=== PATIENT | male | born 1985 | race Caucasian/White ===

== ENCOUNTER 2021-01-31 10:00 | Inpatient (IN) | payer SELFPAY ==
[2021-01-31 10:09] VITALS: BP 148/92; PULSE 104; RESP 18; TEMP 37.1; O2SAT 97; BMI 22.9
--- NOTE | 2021-01-31 10:23 | W.ED.PSYCH ---
Documented by User: MAHNAZ Cha 02/01/21 08:57 HPI - Psych General: Chief Complaint: Psychiatric Symptoms Stated Complaint: SI Time Seen by Provider: 01/31/21 10:06 History of Present Illness: HPI Narrative: Patient is a 35-year-old male comes to the ED with depression and SI. Past medical history of major depressive disorder and he currently takes Klonopin, Prozac and hydroxyzine. Patient also admits to methamphetamine use and says that he smoked meth approximately 36 hours ago. Currently he is having a lot of stress and issues with his . He is having increased depression lately due to his relationship problems. Patient also described that he is paranoid and thinks that the neuropsychology division chief are trying to kill him. He denies any auditory or visual hallucinations. Associated symptoms: Reports delusions, depression, homicidal ideation and suicidal ideation; Deny auditory hallucinations or visual hallucinations Review of Systems Const: Denies: fever(s), chills or fatigue Eyes: Denies: change in vision or eye discomfort ENMT: Denies: throat pain, odynophagia, nasal discharge or nasal congestion Card: Denies: chest pain, palpitations, edema, swelling of feet/ankles, dyspnea on exertion or orthopnea Resp: Denies: dyspnea, productive cough or non-productive cough GI: Denies: abdominal pain, nausea, vomiting, diarrhea, constipation or hematochezia : Denies: flank pain, difficulty urinating, dysuria or hematuria Musc: Denies: neck pain, back pain or extremity swelling Skin/Breast: Denies: rash or new lesions Neuro: Denies: headache(s), numbness in extremities or weakness in extremities Psych: Reports: depression, paranoia, suicidal ideation and homicidal ideation; Denies: visual hallucinations or auditory hallucinations Physical Exam Const: COMMON NORMALS: patient oriented x3 and alert GENERAL APPEARANCE: cooperative and comfortable HENMT: COMMON NORMALS: normocephalic HEAD & SCALP: normocephalic MOUTH: Normal oral and palatal mucosa present THROAT: posterior oropharynx normal and uvula midline Neck/C-Spine: COMMON NORMALS: supple GENERAL: Yes normal visual inspection Resp: COMMON NORMALS: normal respiratory effort, No retractions, No use of accessory muscles and clear to auscultation bilaterally AUSCULTATION: clear to auscultation bilaterally Cardio: COMMON NORMALS: regular rate, regular rhythm, S1 normal heart sound present, S2 normal heart sound present, No gallops present (Cardio), No clicks present (Cardio), No murmurs present (Cardio) and Peripheral pulses 2+ throughout RATE: regular rate RHYTHM: regular rhythm HEART SOUNDS: S1 normal heart sound present and S2 normal heart sound present PERIPHERAL PULSES: Peripheral pulses 2+ throughout GI: COMMON NORMALS: Normal to inspection, nondistended, normoactive bowel sounds present, Soft to palpation, non-tender and no masses PALPATION: Yes Soft to palpation : COMMON NORMALS: Yes no CVA tenderness BLADDER/KIDNEY EXAM: Yes no CVA tenderness Back/Pelvis: COMMON NORMALS: no CVA tenderness Extremity: COMMON NORMALS: normal to inspection Neuro: COMMON NORMALS: patient oriented x3 and moves all extremities SENSORIUM/ORIENTATION: Yes alert Psych: APPEARANCE: Yes grossly normal ATTITUDE: Yes engaged ACTIVITY/MOTOR BEHAVIOR: Yes appropriate eye contact, Yes fidgeting and Yes hyperactivity SPEECH: Yes rapid MOOD & AFFECT: Yes elevated mood, Yes anxious and Yes tearful THOUGHT CONTENT: Yes Suicidality present, Yes delusions Delusional thought content details: paranoid (He thinks the neuropsychology division chief are trying to kill him.) and No Hallucination(s) present ATTENTION/CONCENTRATION: Yes attention grossly intact and Yes concentration grossly intact MEMORY/COGNITION: Yes memory grossly intact and Yes cognition grossly intact INSIGHT: Fair insight present (Psych) JUDGEMENT: Fair judgement present (Psych) Skin: GENERAL SKIN EXAM: dry skin Course Consultations: Consultation #1: I contacted Dr. Torres and told about patient case. He wanted me to put patient on a 96-hour hold and admit him to the stress unit. Vital Signs: Vital signs: Vital Signs Temperature 98.8 F 02/03/21 09:35 Pulse Rate 64 02/03/21 09:35 Respiratory Rate 15 02/03/21 09:35 Blood Pressure 110/65 02/03/21 09:35 Pulse Oximetry 99 02/03/21 09:35 MDM - Psych MDM Narrative: Medical decision making narrative: Patient is a 35-year-old male comes to the ED with SI and depression. Patient admits to being a methamphetamine user and used meth approximately 36 hours ago. All prescreening labs were performed and patient did have a positive meth and marijuana urine drug screen. I contacted Dr. Torres to tell him about patient case. He wanted me to put patient on a 96-hour hold and admit him to the stress unit. I filled out the 96-hour hold paperwork and head Dr. Maldonado placed the admitting orders for patient to go to the NPU. Lab Data: Attestation: I reviewed the patient's lab results. Labs: Lab Results 01/31/21 01/31/21 01/31/21 Range/Units 10:24 10:24 12:26 WBC 10.0 (4.0-10.0) 10^3/ uL RBC 4.93 (4.1-5.3) 10^6/u L Hgb 14.7 (11.7-16.6) g/dL Hct 43.5 (42.0-52.0) % MCV 88.2 (80-94) fL MCH 29.8 (28.0-34.0) pg MCHC 33.8 (30.0-36.0) g/dL RDW 13.1 (12.1-15.1) % Plt Count 320 (130-400) 10^3/c mm MPV 11.0 H (7.4-10.4) fL Neut % (Auto) 67.7 % Lymph % (Auto) 21.0 % [place] % (Auto) 9.6 % Eos % (Auto) 0.6 % Baso % (Auto) 0.8 % Neut # (Auto) 6.80 (1.8-7.7) 10^3/u L Lymph # (Auto) 2.1 (0.8-4.8) 10^3/u L [place] # (Auto) 1.0 H (0.2-0.9) 10^3/u L Eos # (Auto) 0.1 (0.0-0.8) 10^3/u L Baso # (Auto) 0.1 (0.0-0.1) 10^3/u L Nucleated RBC % (a uto) 0 % Nucleated RBCs # 0.0 /100WBC Sodium 143 (136-145) mmol/L Potassium 3.9 (3.5-5.1) mmol/L Chloride 103 (98-107) mmol/L Carbon Dioxide 24 (22-29) mmol/L Anion Gap 19.9 H (5-19) BUN 14 (6-20) mg/dL Creatinine 0.8 (0.7-1.2) mg/dL GFR Calculation 110.7 (90-130) mL/min Glucose 85 (65-115) mg/dL Calculated Osmolal ity 296 H (285-295) mOsm/k g Calcium 10.1 (8.5-10.5) mg/dL Total Bilirubin 0.6 (0.15-1.2) mg/dL AST 32 (0-40) U/L ALT 30 (0-41) U/L Alkaline Phosphata se 110 (40-130) IU/L Total Protein 7.3 (6.6-8.7) g/dL Albumin 4.9 (3.5-5.2) g/dL Globulin 2.4 (1.3-4.6) g/dL Urine Color Yellow (Yellow) Urine Appearance Clear (CLEAR) Urine pH 5 (5-7) Ur Specific Gravit y 1.020 (1.005-1.030) Urine Protein Neg (Negative) Urine Glucose (UA) Norm (Normal) Urine Ketones Negative (Negative) Urine Blood Neg (Negative) Urine Nitrate Negative (Negative) Urine Bilirubin Neg (Negative) Urine Urobilinogen Norm (Negative) mg/dL Ur Leukocyte Ashley ase Negative (Negative) Urine RBC None (0-2) /hpf Urine WBC 0-4 H (0-5) /hpf Ur Squamous Epith Cells 0-4 H (0-5) /hpf Amorphous Sediment Not Reportable Urine Bacteria Trace (NONE) /hpf Salicylates < 0.3 L (3-10) mg/dL Urine Opiates Scre en (Negative) ng/mL Acetaminophen < 5.0 L (10-30) ug/mL Ur Barbiturates Sc reen (Negative) ng/mL Ur Phencyclidine S crn (Negative) ng/mL Ur Amphetamines Sc reen (Negative) ng/mL U Benzodiazepines Scrn (Negative) ng/mL Urine Cocaine Scre en (Negative) ng/mL U Marijuana (THC) Screen (Negative) ng/mL Ethyl Alcohol 28 H (0-10) mg/dL 01/31/21 Range/Units 12:26 WBC (4.0-10.0) 10^3/ uL RBC (4.1-5.3) 10^6/u L Hgb (11.7-16.6) g/dL Hct (42.0-52.0) % MCV (80-94) fL MCH (28.0-34.0) pg MCHC (30.0-36.0) g/dL RDW (12.1-15.1) % Plt Count (130-400) 10^3/c mm MPV (7.4-10.4) fL Neut % (Auto) % Lymph % (Auto) % [place] % (Auto) % Eos % (Auto) % Baso % (Auto) % Neut # (Auto) (1.8-7.7) 10^3/u L Lymph # (Auto) (0.8-4.8) 10^3/u L [place] # (Auto) (0.2-0.9) 10^3/u L Eos # (Auto) (0.0-0.8) 10^3/u L Baso # (Auto) (0.0-0.1) 10^3/u L Nucleated RBC % (a uto) % Nucleated RBCs # /100WBC Sodium (136-145) mmol/L Potassium (3.5-5.1) mmol/L Chloride (98-107) mmol/L Carbon Dioxide (22-29) mmol/L Anion Gap (5-19) BUN (6-20) mg/dL Creatinine (0.7-1.2) mg/dL GFR Calculation (90-130) mL/min Glucose (65-115) mg/dL Calculated Osmolal ity (285-295) mOsm/k g Calcium (8.5-10.5) mg/dL Total Bilirubin (0.15-1.2) mg/dL AST (0-40) U/L ALT (0-41) U/L Alkaline Phosphata se (40-130) IU/L Total Protein (6.6-8.7) g/dL Albumin (3.5-5.2) g/dL Globulin (1.3-4.6) g/dL Urine Color (Yellow) Urine Appearance (CLEAR) Urine pH (5-7) Ur Specific Gravit y (1.005-1.030) Urine Protein (Negative) Urine Glucose (UA) (Normal) Urine Ketones (Negative) Urine Blood (Negative) Urine Nitrate (Negative) Urine Bilirubin (Negative) Urine Urobilinogen (Negative) mg/dL Ur Leukocyte Ashley ase (Negative) Urine RBC (0-2) /hpf Urine WBC (0-5) /hpf Ur Squamous Epith Cells (0-5) /hpf Amorphous Sediment Urine Bacteria (NONE) /hpf Salicylates (3-10) mg/dL Urine Opiates Scre en Negative (Negative) ng/mL Acetaminophen (10-30) ug/mL Ur Barbiturates Sc reen Negative (Negative) ng/mL Ur Phencyclidine S crn Negative (Negative) ng/mL Ur Amphetamines Sc reen Positive H (Negative) ng/mL U Benzodiazepines Scrn Negative (Negative) ng/mL Urine Cocaine Scre en Negative (Negative) ng/mL U Marijuana (THC) Screen Positive H (Negative) ng/mL Ethyl Alcohol (0-10) mg/dL Discharge Plan Discharge Patient Disposition: Admitted As Inpatient Admit Provider: Yonis Torres Condition: Stable Discharge Diet: Regular Discharge Activity: Resume usual activity Coding Level of Care Code ED 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 Department for [employer] Fwd Exam Comprehensive Documented by User: Morgan Briceño MD 02/04/21 11:04 HPI - Psych General: Chief Complaint: Psychiatric Symptoms Stated Complaint: SI Time Seen by Provider: 01/31/21 10:06 Course Vital Signs: Vital signs: Vital Signs Temperature 98.8 F 02/03/21 09:35 Pulse Rate 64 02/03/21 09:35 Respiratory Rate 15 02/03/21 09:35 Blood Pressure 110/65 02/03/21 09:35 Pulse Oximetry 99 02/03/21 09:35 MDM - Psych Lab Data: Labs: Lab Results 01/31/21 01/31/21 01/31/21 Range/Units 10:24 10:24 12:26 WBC 10.0 (4.0-10.0) 10^3/ uL RBC 4.93 (4.1-5.3) 10^6/u L Hgb 14.7 (11.7-16.6) g/dL Hct 43.5 (42.0-52.0) % MCV 88.2 (80-94) fL MCH 29.8 (28.0-34.0) pg MCHC 33.8 (30.0-36.0) g/dL RDW 13.1 (12.1-15.1) % Plt Count 320 (130-400) 10^3/c mm MPV 11.0 H (7.4-10.4) fL Neut % (Auto) 67.7 % Lymph % (Auto) 21.0 % [place] % (Auto) 9.6 % Eos % (Auto) 0.6 % Baso % (Auto) 0.8 % Neut # (Auto) 6.80 (1.8-7.7) 10^3/u L Lymph # (Auto) 2.1 (0.8-4.8) 10^3/u L [place] # (Auto) 1.0 H (0.2-0.9) 10^3/u L Eos # (Auto) 0.1 (0.0-0.8) 10^3/u L Baso # (Auto) 0.1 (0.0-0.1) 10^3/u L Nucleated RBC % (a uto) 0 % Nucleated RBCs # 0.0 /100WBC Sodium 143 (136-145) mmol/L Potassium 3.9 (3.5-5.1) mmol/L Chloride 103 (98-107) mmol/L Carbon Dioxide 24 (22-29) mmol/L Anion Gap 19.9 H (5-19) BUN 14 (6-20) mg/dL Creatinine 0.8 (0.7-1.2) mg/dL GFR Calculation 110.7 (90-130) mL/min Glucose 85 (65-115) mg/dL Calculated Osmolal ity 296 H (285-295) mOsm/k g Calcium 10.1 (8.5-10.5) mg/dL Total Bilirubin 0.6 (0.15-1.2) mg/dL AST 32 (0-40) U/L ALT 30 (0-41) U/L Alkaline Phosphata se 110 (40-130) IU/L Total Protein 7.3 (6.6-8.7) g/dL Albumin 4.9 (3.5-5.2) g/dL Globulin 2.4 (1.3-4.6) g/dL Urine Color Yellow (Yellow) Urine Appearance Clear (CLEAR) Urine pH 5 (5-7) Ur Specific Gravit y 1.020 (1.005-1.030) Urine Protein Neg (Negative) Urine Glucose (UA) Norm (Normal) Urine Ketones Negative (Negative) Urine Blood Neg (Negative) Urine Nitrate Negative (Negative) Urine Bilirubin Neg (Negative) Urine Urobilinogen Norm (Negative) mg/dL Ur Leukocyte Ashley ase Negative (Negative) Urine RBC None (0-2) /hpf Urine WBC 0-4 H (0-5) /hpf Ur Squamous Epith Cells 0-4 H (0-5) /hpf Amorphous Sediment Not Reportable Urine Bacteria Trace (NONE) /hpf Salicylates < 0.3 L (3-10) mg/dL Urine Opiates Scre en (Negative) ng/mL Acetaminophen < 5.0 L (10-30) ug/mL Ur Barbiturates Sc reen (Negative) ng/mL Ur Phencyclidine S crn (Negative) ng/mL Ur Amphetamines Sc reen (Negative) ng/mL U Benzodiazepines Scrn (Negative) ng/mL Urine Cocaine Scre en (Negative) ng/mL U Marijuana (THC) Screen (Negative) ng/mL Ethyl Alcohol 28 H (0-10) mg/dL 01/31/21 Range/Units 12:26 WBC (4.0-10.0) 10^3/ uL RBC (4.1-5.3) 10^6/u L Hgb (11.7-16.6) g/dL Hct (42.0-52.0) % MCV (80-94) fL MCH (28.0-34.0) pg MCHC (30.0-36.0) g/dL RDW (12.1-15.1) % Plt Count (130-400) 10^3/c mm MPV (7.4-10.4) fL Neut % (Auto) % Lymph % (Auto) % [place] % (Auto) % Eos % (Auto) % Baso % (Auto) % Neut # (Auto) (1.8-7.7) 10^3/u L Lymph # (Auto) (0.8-4.8) 10^3/u L [place] # (Auto) (0.2-0.9) 10^3/u L Eos # (Auto) (0.0-0.8) 10^3/u L Baso # (Auto) (0.0-0.1) 10^3/u L Nucleated RBC % (a uto) % Nucleated RBCs # /100WBC Sodium (136-145) mmol/L Potassium (3.5-5.1) mmol/L Chloride (98-107) mmol/L Carbon Dioxide (22-29) mmol/L Anion Gap (5-19) BUN (6-20) mg/dL Creatinine (0.7-1.2) mg/dL GFR Calculation (90-130) mL/min Glucose (65-115) mg/dL Calculated Osmolal ity (285-295) mOsm/k g Calcium (8.5-10.5) mg/dL Total Bilirubin (0.15-1.2) mg/dL AST (0-40) U/L ALT (0-41) U/L Alkaline Phosphata se (40-130) IU/L Total Protein (6.6-8.7) g/dL Albumin (3.5-5.2) g/dL Globulin (1.3-4.6) g/dL Urine Color (Yellow) Urine Appearance (CLEAR) Urine pH (5-7) Ur Specific Gravit y (1.005-1.030) Urine Protein (Negative) Urine Glucose (UA) (Normal) Urine Ketones (Negative) Urine Blood (Negative) Urine Nitrate (Negative) Urine Bilirubin (Negative) Urine Urobilinogen (Negative) mg/dL Ur Leukocyte Ashley ase (Negative) Urine RBC (0-2) /hpf Urine WBC (0-5) /hpf Ur Squamous Epith Cells (0-5) /hpf Amorphous Sediment Urine Bacteria (NONE) /hpf Salicylates (3-10) mg/dL Urine Opiates Scre en Negative (Negative) ng/mL Acetaminophen (10-30) ug/mL Ur Barbiturates Sc reen Negative (Negative) ng/mL Ur Phencyclidine S crn Negative (Negative) ng/mL Ur Amphetamines Sc reen Positive H (Negative) ng/mL U Benzodiazepines Scrn Negative (Negative) ng/mL Urine Cocaine Scre en Negative (Negative) ng/mL U Marijuana (THC) Screen Positive H (Negative) ng/mL Ethyl Alcohol (0-10) mg/dL Discharge Plan Discharge Patient Disposition: Admitted As Inpatient Admit Provider: Yonis Torres Condition: Stable Discharge Diet: Regular Discharge Activity: Resume usual activity Coding Level of Care Code ED 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
[2021-01-31 10:25] VITALS: BP 142/84; PULSE 98; RESP 18; O2SAT 96
[2021-01-31 10:34] LABS: Basophils # 0.1 10^3/uL (0.0-0.1); Basophils % 0.8 %; Eosinophils # 0.1 10^3/uL (0.0-0.8); Eosinophils % 0.6 %; Hematocrit 43.5 % (42.0-52.0); Hemoglobin 14.7 g/dL (11.7-16.6); Lymphocytes # 2.1 10^3/uL (0.8-4.8); Mean Corpuscular HGB Conc 33.8 g/dL (30.0-36.0); Mean Corpuscular Hemoglobin 29.8 pg (28.0-34.0); Mean Corpuscular Volume 88.2 fL (80-94); Monocytes % 9.6 %; Neutrophils % 67.7 %; Nucleated Red Blood Cells % 0 %; Platelet Count 320 10^3/cmm (130-400); Red Blood Count 4.93 10^6/uL (4.1-5.3); Red Cell Distribution Width 13.1 % (12.1-15.1)
[2021-01-31 10:56] LABS: Alanine Aminotransferase 30 U/L (0-41); Albumin Level 4.9 g/dL (3.5-5.2); Alcohol Level 28 mg/dL (0-10); Alkaline Phosphatase 110 IU/L (40-130); Anion Gap 19.9 (5-19); Aspartate Amino Transferase 32 U/L (0-40); Blood Urea Nitrogen 14 mg/dL (6-20); Calcium 10.1 mg/dL (8.5-10.5); Carbon Dioxide 24 mmol/L (22-29); Chloride 103 mmol/L (98-107); Globulin 2.4 g/dL (1.3-4.6); Glomerular Filtration Rate 110.7 mL/min (90-130); Glucose 85 mg/dL (65-115); Osmolality Calculated 296 mOsm/kg (285-295); Potassium 3.9 mmol/L (3.5-5.1); Sodium 143 mmol/L (136-145); Total Bilirubin 0.6 mg/dL (0.15-1.2); Total Protein 7.3 g/dL (6.6-8.7)
[2021-01-31 10:57] LABS: Acetaminophen < 5.0 ug/mL (10-30); Salicylate < 0.3 mg/dL (3-10)
[2021-01-31] MEDS: LORazepam 2 mg Tablet PO (11:26)
[2021-01-31 13:16] VITALS: BP 119/72; PULSE 73; RESP 20; O2SAT 97
[2021-01-31 13:43] LABS: Amphetamines Screen Urine Positive (Negative); Barbiturates Screen Urine Negative (Negative); Benzodiazepines Screen Urine Negative (Negative); Cocaine Screen Urine Negative (Negative); Opiate Screen Urine Negative (Negative); PCP Screen Urine Negative (Negative); THC Screen Urine Positive (Negative)
[2021-01-31 13:49] LABS: Bacteria Urine TRACE /hpf; Bilirubin Urine Neg (Negative); Blood Urine Neg (Negative); Glucose Urine UA Norm (Normal); Ketones Urine Negative (Negative); Leukocyte Esterase Urine Negative (Negative); Nitrate Urine Negative (Negative); Protein Urine Neg (Negative); Squamous Epithelial Cell Urine 0-4 /hpf (0-5); Urine Appearance Clear (CLEAR); Urine Color Yellow (Yellow); Urobilinogen Urine Norm (Negative); WBC Urine 0-4 /hpf (0-5); pH Urine 5 (5-7)
[2021-01-31 13:50] LABS: Add Urine Culture? No
[2021-01-31 15:01] VITALS: BP 117/74; PULSE 80; RESP 17; TEMP 36.6; O2SAT 97
[2021-01-31 20:11] VITALS: BP 103/70; PULSE 69; RESP 23; TEMP 36.6; O2SAT 98
[2021-01-31] MEDS: hyDROXYzine 25 mg Capsule 50 MG PO (20:34)
[2021-01-31] MEDS: trazodone 50 mg Tablet PO (20:35)
[2021-02-01 06:00] VITALS: BP 97/63; PULSE 56; RESP 19; TEMP 36.8; O2SAT 97
[2021-02-01] MEDS: fluoxetine 20 mg Capsule PO (07:59)
[2021-02-01] MEDS: gabapentin 300 mg Capsule PO ×3 (07:59→20:43)
--- NOTE | 2021-02-01 08:02 | PC.NURSE ---
AM note Patient resting in bed during assessment, did not acknowledge nurse at first. Patient reluctantly roll over stating Whats, up? RN asked to do physical assessment. Patient told this nurse to hurry. After assessment patient rolled back over and went to sleep. Patient did not get up for breakfast.
--- NOTE | 2021-02-01 11:07 | PM.NHP ---
Providers/Chief Complaint Admitting Physician: Yonis Torres DO Chief Complaint: SI HPI NPU History of Present Illness Reid Ríos is a 35 year old male with longstanding polysubstance abuse history as well as daily alcohol use presenting to the emergency department stating that he is suicidal and going to kill himself with ongoing depressive symptoms as well as PTSD symptoms from trauma experienced while he was in [facility]. Patient currently stating that all he needs is his medications to be refilled because he does not see a psychiatrist on an outpatient basis and last had his medications filled for 90 days from a previous psychiatric hospitalization. Patient states that he was really not suicidal and was trying to manipulate to get into the inpatient psychiatry unit but subsequently reports having daily PTSD symptoms to cause significant impairment to include reexperiencing, flashbacks, night sweats, hypervigilance, nightmares. Patient states that he thinks he has bipolar disorder although he is not able to cite any instances of not using substances or alcohol and experiencing any hypomanic or manic episodes outside of his behaviors related to methamphetamine use Patient also reports significant anxiety and states that he had been taking Klonopin and was able to secure Klonopin during his last hospitalization and had it increased to clonazepam 2 mg 3 times daily which she states he had been taking on an as-needed basis for his anxiety that he describes as trauma related anxiety and anxiety related to being in crowded areas. He continues to report ongoing excessive worry and difficulty controlling his worrying. Patient denies any current auditory or visual destinations but states that he was experiencing paranoia and also believes that his is cheating on him and states that methamphetamine use makes his paranoia worse. In addition to weekly methamphetamine use, patient states that he uses marijuana on a daily basis and states that he smokes heavily. Per above, patient also reports drinking alcohol on a daily basis stating at the very least he drinks a couple shots daily. Patient states last substance treatment was over 10 years ago. Psychiatric review of systems is otherwise negative. Per above, patient does not follow-up with outpatient psychiatry and states that he has never had trauma based therapy or any counseling or therapy. Review of Systems General: Reports: 10 or more systems reviewed and unremarkable except in HPI and below Meds NPU Home Medications Medication Instructions Recorded Confirmed Last Taken Type fluoxetine [Prozac] 20 mg PO DAILY 01/31/21 01/31/2101/31/21 History gabapentin 300 mg PO TID 01/31/21 01/31/21 01/31/21 History Allergies Allergy/AdvReac Type Severity Reaction Status Date / Time No Known Allergies Allergy Verified 01/31/21 10:09 [facility] N[facility] Other Psychiatric History: Other Psychiatric History: Denies any outpatient psychiatry treatment or therapy Reports multiple past psychiatric hospitalizations stating that they have all been substance related or him seeking medication Denies any history of suicide attempts or self-harm behavior Mental Status Exam MSE Comments: Appropriately groomed and dressed wearing hospital scrubs, sitting in the day room, calm, cooperative, good eye contact Psychomotor activity is neither increased nor decreased, no visible tremors Speech is normal rate and volume, spontaneous, clear articulation, not pressured I feel okay, full range of affect, not labile Alert and oriented to person, place, time, situation Memory and concentration appear to be intact per interview Intellectual functioning appears to be average based on vocabulary, interview Thought process, linear, no flight of ideas, no looseness of associations Thought content, no delusions, no hallucinations, no suicidal or homicidal ideation Insight and judgment appear to be fair Vitals/I&O/Wt Last Vital Signs Temp 98.2 F 02/01/21 06:00 Pulse 56 L 02/01/21 06:00 Resp 19 H 02/01/21 06:00 BP 97/63 02/01/21 06:00 Pulse Ox 97 02/01/21 06:00 Weight last 48 hrs Weight 72.575 kg Data NPU : 01/31/21 10:24 01/31/21 10:24 A&P Assessment and plan (1) Suicidal ideation: Status: Acute (2) Psychotic disorder: Status: Acute (3) Methamphetamine abuse: Status: Acute (4) Cannabis abuse: Status: Acute (5) Alcohol abuse: Status: Acute (6) PTSD (post-traumatic stress disorder): Status: Acute Additional A&P Information 35-year-old male with significant history of past trauma with reported ongoing PTSD symptoms in the context of presenting to the emergency department drug-seeking more Drew reporting suicidal ideation although he currently states that he was lying to get into the hospital as well as methamphetamine abuse, daily cannabis abuse and alcohol abuse. Patient does continue to pose a significant risk to himself secondary to poor insight into his ongoing substance use in the context of significant trauma related symptoms causing significant impairment and with recent suicidal ideation. INVOLUNTARY ADMIT to inpatient psychiatry INCREASE to fluoxetine 60 mg daily targeting trauma related anxiety and depressive symptoms CONTINUE gabapentin 3 mg 3 times daily DISCONTINUE Klonopin secondary to concerns of contraindication for PTSD as well as history of abuse Discussed need for abstaining from the use of substances in the context of significant psychiatric issues as well as ongoing daily impairment Coordinate with social services director for post discharge substance counseling/treatment as well as follow-up mental health care Involuntary Hold Information 96 Hour Hold: 96 Hour Involuntary Admission: Yes 96 Hour Hold Ending Date: 02/05/21 96 Hour Hold Ending Time: 00:01 Attestations NPU Medical Necessity Statement*: Psychiatric hospitalization is indicated for medication stabilization, coordination for safe discharge Anticipate hospital stay to exceed 2 midnights Time Spent in Patient Care: Greater than 35 minutes (>than 50% of time spent in counselling and/or direct pt care on unit). Coding Level of Care Code Acute Research Nurse for Kathleen Jasso Diagnoses Suicidal ideation R45.851 Psychotic disorder F29 Methamphetamine abuse F15.10 Cannabis abuse F12.10 Alcohol abuse F10.10 PTSD (post-traumatic stress disorder) F43.10
[2021-02-01] MEDS: fluoxetine 20 mg Capsule 40 MG PO (11:21)
[2021-02-01 14:00] VITALS: BP 120/72; PULSE 74; RESP 16; TEMP 37.2; O2SAT 98
[2021-02-01 21:24] VITALS: BP 119/77; PULSE 76; RESP 18; TEMP 36.6; O2SAT 97
[2021-02-02 05:09] VITALS: BP 109/67; PULSE 80; RESP 18; TEMP 37.1; O2SAT 98
[2021-02-02] MEDS: fluoxetine 20 mg Capsule 60 MG PO (08:38)
[2021-02-02] MEDS: gabapentin 300 mg Capsule PO ×3 (08:38→21:49)
--- NOTE | 2021-02-02 13:08 | PC.NURSE ---
Patient refused vitals to be taken, stated I am pissy, and not getting any better so I dont think I need them .
[2021-02-02 13:12] VITALS: RESP 16
--- NOTE | 2021-02-02 13:16 | PC.NURSE ---
Patient is sitting on the bench next to the nurses station, exploding and upset because he has a job that he needs to go to and that he is afraid that he will lose his job. Patient is yelling at nursing staff and security. security notified.
--- NOTE | 2021-02-02 14:26 | P.PN_ITS ---
Subjective NPU Subjective: Interval history: Patient had an episode of irritability, anger related to impatience about discharging from the unit but was eventually verbally and behaviorally redirected with patient subsequently apologizing to interviewer Patient denies any interval psychotic symptoms, denies any paranoia related to his initial presentation in the emergency department Patient currently denying any depressive symptoms, denies any interval suicidal ideation or thoughts about self-harm and denies any homicidal ideation or thoughts about harming other individuals Patient is future oriented and looks forward to post discharge treatment as well as starting a new job He reports being compliant with his medication and denies any medication side effects Reports that he slept well last evening States that his appetite is been good Per staff, other than episode of becoming upset about discharging, patient has been calm and cooperative with care Mental Status Exam MSE Comments: Sitting on his bed, calm, cooperative, initially frustrated but easily redirected, appropriately groomed and dressed, good eye contact Psychomotor activity is neither increased nor decreased, no visible tremors Speech is normal rate and volume, spontaneous, clear articulation, not pressured I feel better now but felt frustrated earlier, full range of affect, not labile Alert and oriented to person, place, time, situation Memory and concentration appear to be intact per interview Thought process, linear, no flight of ideas, no looseness of associations Thought content, no delusions, no hallucinations, no suicidal or homicidal ideation Insight and judgment appear to be fair to intact Vitals/I&O/Wt Last Vital Signs Temp 98.7 F 02/02/21 05:09 Pulse 80 02/02/21 05:09 Resp 16 02/02/21 13:12 BP 109/67 02/02/21 05:09 Pulse Ox 98 02/02/21 05:09 Data NPU : 01/31/21 10:24 01/31/21 10:24 A&P Assessment and plan (1) Suicidal ideation: Status: Acute (2) Psychotic disorder: Status: Acute (3) PTSD (post-traumatic stress disorder): Status: Acute (4) Alcohol abuse: Status: Acute (5) Cannabis abuse: Status: Acute (6) Methamphetamine abuse: Status: Acute Additional A&P Information Patient with interval episode of becoming angry but quickly reconstituted after verbal and behavioral redirection, no interval suicidal ideation with thoughts about self-harm, improved mood, no interval psychotic symptoms. 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
[2021-02-02] MEDS: nicotine 21 mg Patch 1 PATCH TRANSDERMA (14:30)
[2021-02-02 20:55] VITALS: BP 154/83; PULSE 82; RESP 18; TEMP 36.6; O2SAT 96
[2021-02-02] MEDS: nicotine 2 mg Gum BUCCAL (21:49)
[2021-02-02] MEDS: trazodone 50 mg Tablet PO (22:31)
[2021-02-02] MEDS: hyDROXYzine 25 mg Capsule 50 MG PO (22:31)
--- NOTE | 2021-02-02 22:35 | PC.NURSE ---
trazodone 50 mg and Zofran 50mg given for sleep and anxiety.
--- NOTE | 2021-02-03 05:46 | PC.NURSE ---
PM ASSESSMENT PT IS IN THE DAYROOM WATCHING TV. DENIES ALL, CALM AN COOPERATIVE WITH STAFF. NO ISSUES OR CONCERNS FOR PHYSICIAN AT THIS TIME
[2021-02-03 06:00] VITALS: BP 110/65; PULSE 64; RESP 15; TEMP 37.1; O2SAT 99
--- NOTE | 2021-02-03 08:38 | PM.NDC ---
Diagnoses at Discharge Discharge Diagnosis (1) Suicidal ideation: Status: Acute (2) Psychotic disorder: Status: Acute (3) PTSD (post-traumatic stress disorder): Status: Acute (4) Alcohol abuse: Status: Acute (5) Cannabis abuse: Status: Acute (6) Methamphetamine abuse: Status: Acute Reason for Visit Reason for Visit: SI Hospital Course Hospital Course 35 year old male with longstanding polysubstance abuse history as well as daily alcohol use presenting to the emergency department stating that he is suicidal and going to kill himself with ongoing depressive symptoms as well as PTSD symptoms from trauma experienced while he was in long-term. Patient currently stating that all he needs is his medications to be refilled because he does not see a psychiatrist on an outpatient basis and last had his medications filled for 90 days from a previous psychiatric hospitalization. Patient states that he was really not suicidal and was trying to manipulate to get into the inpatient psychiatry unit but subsequently reports having daily PTSD symptoms to cause significant impairment to include reexperiencing, flashbacks, night sweats, hypervigilance, nightmares. Patient appeared to be attempting to manipulate for more Klonopin that he likely ran out of and appeared to quickly reconstituted with no complaint of any auditory hallucinations or any psychotic symptoms. Patient also quickly denied any depressive symptoms or any mood symptoms and denied suicidal ideation or thoughts about self-harm. Patient was no longer endorsing any paranoia or thoughts that the police were following him or out to get him. Patient did continue to report intermittent PTSD symptoms. Patient's fluoxetine was increased to fluoxetine 60 mg daily which she tolerated with no reports of any medication side effects. plate take out worker met with the patient and coordinated for post discharge mental health care follow-up as well as substance counseling/treatment. Patient was not endorsing any suicidal ideation or any psychiatric symptoms at the time of discharge and did not appear to pose an imminent threat of harm to self or others. Low to moderate risk of harm to self or others although patient appears to have low frustration tolerance, longstanding legal history with past time in long-term, ongoing substance abuse and noncompliance with medication and medication management follow-up which I will continue to elevate his risk and potentially lead to unexpected, impulsive behavior. Risk mitigation included psychiatric hospitalization for observing any persistence of suicidal ideation or behaviors as well as any worsening psychotic symptoms which appeared to have been secondary to his methamphetamine use as well as recommendation to abstain from the use of substances and alcohol and medication stabilization. Patient was able to communicate his understanding of the need to abstain from the use of substances and alcohol as well as the need for compliance with his medication, medication management as well as substance counseling/treatment in order to further mitigate his risk of harm to self and others. Involuntary Hold Information 96 Hour Hold: 96 Hour Involuntary Admission: Yes 96 Hour Hold Ending Date: 02/05/21 96 Hour Hold Ending Time: 00:01 Mental Status Exam MSE Comments: Lying in bed, polite, interactive, appropriately groomed and dressed,good eye contact Psychomotor activity is neither increased nor decreased, no visible tremors Speech is normal rate and volume, spontaneous, clear articulation, not pressured I feel pretty good, full range of affect, not labile Alert and oriented to person, place, time, situation Memory and concentration appear to be intact per interview Thought process, linear, no flight of ideas, no looseness of associations Thought content, no delusions, no hallucinations, no suicidal or homicidal ideation Insight and judgment appear to be fair to intact Discharge Data Vitals: Last Vital Signs Temp 98.8 F 02/03/21 06:00 Pulse 64 02/03/21 06:00 Resp 15 02/03/21 06:00 BP 110/65 02/03/21 06:00 Pulse Ox 99 02/03/21 06:00 Discharge Plan Discharge Patient Disposition: Home Condition: Stable Prescriptions: New fluoxetine 20 mg Capsule 60 mg PO DAILY Qty: 90 RF: 0 Continued gabapentin 300 mg Capsule 300 mg PO TID RF: 0 Discontinued Prozac 20 mg Capsule 20 mg PO DAILY RF: 0 Discharge Orders: Discharge Order (Routine); Ordered 02/03/21 Ordered By: Yonis Torres Referrals: [facility] [Other] [facility] [Outside] (Inintial referrals are done by walk-in Monday through Monday 7:30am to 3pm.) [facility] [Outside] (Complete SUDS application provided and take to [facility]) Discharge Diet: Regular Discharge Activity: Resume usual activity Patient Instructions: Opioid Safety Discharge Attestations NPU Time Spent in Discharge Care*: greater than 30 min Status at Discharge: Cognitive status at discharge: cognitively intact, Behavioral status at discharge: cooperative, Functional status at discharge: independent ambulation Overall status at discharge: patient is back to baseline Coding Level of Care Code Acute Chg FW DC note Diagnoses Suicidal ideation R45.851 Psychotic disorder F29 PTSD (post-traumatic stress disorder) F43.10 Alcohol abuse F10.10 Cannabis abuse F12.10 Methamphetamine abuse F15.10
[2021-02-03 09:35] VITALS: BP 110/65; PULSE 64; RESP 15; TEMP 37.1; O2SAT 99
[2021-02-03] MEDS: gabapentin 300 mg Capsule PO (09:39)
[2021-02-03] MEDS: fluoxetine 20 mg Capsule 60 MG PO (09:39)
== END 2021-02-03 09:46 | disposition home or self-care (01) | DRG 882 ==
LOC: ER 11:24 → NP 14:21
PROVIDERS: Admitting Provider Psychiatry & Neurology Psychiatry; Emergency Provider Physician Assistant; Visit Provider Psychiatry & Neurology Psychiatry
DX: F43.10 Post-traumatic stress disorder, unspecified (principal); R45.851 Suicidal ideations; X58.XXXA Exposure to other specified factors, initial encounter; F15.159 Other stimulant abuse with stimulant-induced psychotic disorder, unspecified; F41.9 Anxiety disorder, unspecified; F12.10 Cannabis abuse, uncomplicated; F10.10 Alcohol abuse, uncomplicated; Z76.5 Malingerer [conscious simulation]; Z91.14 Patient's other noncompliance with medication regimen
CPT/HCPCS: 80053; 80306; 80307; 81001; 85025; 99285

== ENCOUNTER 2025-02-08 03:44 | Emergency (ER) | payer SELFPAY ==
--- OUTSIDE RECORDS SUMMARY | 2025-02-08 04:03 | XMS_ITS | Encounter Summary ---
Author Organization [facility] Address [address] [place] [address] Care Team Providers Care Managing Broker Name Role Phone Unavailable Primary Care Provider Unavailabl e Encounter Details Date Type Department Care Team (Latest Contact Info) Description 04/14/2000 Outpatient Historical [facility] Pediatric Neurology-[place] [address] [place] [address] [place] [address] [facility] [address] [place] [address] Attention deficit disorder with hyperactivity(314.01 ) (Primary Dx); Obsessive-compulsive disorders Social History Tobacco Use Types Packs/Day Years Used Date Smoking Tobacco: Never Assessed Sex and Gender Information Value Date Recorded Sex Assigned at Not on file 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
--- OUTSIDE RECORDS SUMMARY | 2025-02-08 04:03 | XMS_ITS | Encounter Summary ---
Author Organization [facility] Address [address] [place] [address] Care Team Providers Care Business Planner Name Role Phone Unavailable Primary Care Provider Unavailabl e Encounter Details Date Type Department Care Team (Latest Contact Info) Description 05/27/1999 Outpatient Historical [facility] Pediatric Neurology-[place] [address] [place] [address] [place] [address] 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
--- OUTSIDE RECORDS SUMMARY | 2025-02-08 04:03 | XMS_ITS | Encounter Summary ---
Author Organization [facility] Address [address] [place] [address] Care Team Providers Care Workers' Compensation Commissioner Name Role Phone Unavailable Primary Care Provider Unavailabl e Encounter Details Date Type Department Care Team (Latest Contact Info) Description 09/11/2000 Outpatient Historical [facility] Pediatric Neurology-[place] [address] [place] [address] [place] [address] [facility] [address] [place] [address] Unspecified disturbance of conduct (Primary Dx) Social History Tobacco Use Types Packs/Day Years Used Date Smoking Tobacco: Never Assessed Sex and Gender Information Value Date Recorded Sex Assigned at Not on file Legal Sex Male 3:23 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
--- OUTSIDE RECORDS SUMMARY | 2025-02-08 04:03 | XMS_ITS | Encounter Summary ---
Author Organization [facility] Address [address] [place] [address] Care Team Providers Care Ocular Pathologist Name Role Phone Unavailable Primary Care Provider Unavailabl e Encounter Details Date Type Department Care Team (Latest Contact Info) Description 06/17/2004 Outpatient Historical [facility] Behavioral Health- [facility] [address] [place] [address] Lovely Hernandez, Slava Swartz PsyD NO ADDRESS ON FILE DEPRESSIVE DISORDER NEC (Primary Dx) Social History Tobacco Use Types Packs/Day Years Used Date Smoking Tobacco: Never Assessed Sex and Gender Information Value Date Recorded Sex Assigned at Not on file 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
--- OUTSIDE RECORDS SUMMARY | 2025-02-08 04:03 | XMS_ITS | Encounter Summary ---
Author Organization [facility] Address [address] [place] [address] Care Team Providers Care Technician Support Engineer Name Role Phone Unavailable Primary Care Provider Unavailabl e Encounter Details Date Type Department Care Team (Latest Contact Info) Description 05/10/2001 Outpatient Historical [facility] Luis Armando [address] [place] [address] Jose Roberto Piña MD NO ADDRESS ON FILE Hematuria (Primary Dx) Social History Tobacco Use Types Packs/Day Years Used Date Smoking Tobacco: Never Assessed Sex and Gender Information Value Date Recorded Sex Assigned at Not on file 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
--- OUTSIDE RECORDS SUMMARY | 2025-02-08 04:03 | XMS_ITS | Encounter Summary ---
Author Organization [facility] Address [address] [place] [address] Care Team Providers Care Rail Transportation Operator Name Role Phone Unavailable Primary Care Provider Unavailabl e Encounter Details Date Type Department Care Team (Latest Contact Info) Description 06/14/2004 Outpatient Historical [facility] Internal Medicine- [place] [address] [facility] [address] [place] [address] Esequiel Jones MD [address] [place] [address] DEPRESSIVE DISORDER NEC (Primary Dx); ANXIETY STATE NOS Social History Tobacco Use Types Packs/Day Years Used Date Smoking Tobacco: Never Assessed Sex and Gender Information Value Date Recorded Sex Assigned at Not on file 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
--- OUTSIDE RECORDS SUMMARY | 2025-02-08 04:03 | XMS_ITS | Clinical Summary ---
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 Gender Identity Not on file Sexual Orientation Not on file Last Filed Vital Signs Vital Sign Reading Time Taken Comments Blood Pressure 130/71 01/11/2019 12:54 AM CDT Pulse 87 01/11/2019 12:54 AM CDT Temperature 37.3 C (99.1 F) 01/11/2019 12:54 AM CDT Respiratory Rate 16 01/11/2019 12:54 AM CDT Oxygen Saturation 98% 01/11/2019 12:54 AM CDT Inhaled Oxygen Concentration - - Weight - - Height - - Body Mass Index - - Plan of Treatment Health Maintenance Due Date Last Done Comments DTAP/TDAP/TD VACCINES (1 - Tdap) 2005 HEPATITIS B VACCINES (1 of 3 - 19+ 3-dose series) 2005 INFLUENZA VACCINE (#1) 2025 HPV VACCINES Aged Out No longer eligi ble based on patient's age to complete this topic
--- OUTSIDE RECORDS SUMMARY | 2025-02-08 04:03 | XMS_ITS | Clinical Summary ---
Author Organization [employer] Address [address] [facility] [address] Perez: Epic Prelude ADT [place] [address] Care Team Providers Care Certified Medical Biller Name Role Phone Unavailable Primary Care Provider Unavailabl e Allergies No known active allergies Social History Tobacco Use Types Packs/Day Years Used Date Smoking Tobacco: Never Smokeless Tobacco: Never Alcohol Use Standard Drinks/Week Comments Yes 0 (1 standard drink = 0.6 oz pur e alcohol) Sex and Gender Information Value Date Recorded Sex Assigned at Not on file Legal Sex Male 12:40 PM FISH ROE PROCESSOR Gender Identity Not on file Sexual Orientation Not on file Last Filed Vital Signs Vital Sign Reading Time Taken Comments Blood Pressure 130/71 01/11/2019 12:54 AM CDT Pulse 87 01/11/2019 12:54 AM CDT Temperature 37.3 C (99.1 F) 01/11/2019 12:54 AM CDT Respiratory Rate 16 01/11/2019 12:54 AM CDT Oxygen Saturation - - Inhaled Oxygen Concentration - - Weight - [...]
--- OUTSIDE RECORDS SUMMARY | 2025-02-08 04:03 | XMS_ITS | Encounter Summary ---
Author Organization [facility] Address [address] [place] [address] Care Team Providers Care Dust Mop Maker Name Role Phone Unavailable Primary Care Provider Unavailabl e Encounter Details Date Type Department Care Team (Latest Contact Info) Description 05/24/2001 Outpatient Historical [facility] Pediatric Neurology-[place] [address] [place] [address] [place] [address] [facility] [address] [place] [address] Attention deficit disorder with hyperactivity(314.01 ) (Primary Dx); Oppositional defiant disorder of childhood or adolescence Social History Tobacco Use Types Packs/Day Years Used Date Smoking Tobacco: Never Assessed Sex and Gender Information Value Date Recorded Sex Assigned at Not on file Legal Sex Male 3:23 AM 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
--- OUTSIDE RECORDS SUMMARY | 2025-02-08 04:03 | XMS_ITS | Encounter Summary ---
Author Organization [facility] Address [address] [place] [address] Care Team Providers Care Service Desk Associate Name Role Phone Unavailable Primary Care Provider Unavailabl e Encounter Details Date Type Department Care Team (Latest Contact Info) Description 10/11/1999 Outpatient Historical [facility] Pediatric Neurology-[place] [address] [place] [address] [place] [address] [facility] [address] [place] [address] Attention deficit disorder with hyperactivity(314.01 ) (Primary Dx) Social History Tobacco Use Types Packs/Day Years Used Date Smoking Tobacco: Never Assessed Sex and Gender Information Value Date Recorded Sex Assigned at Not on file Legal Sex Male 3:23 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
--- OUTSIDE RECORDS SUMMARY | 2025-02-08 04:03 | XMS_ITS | Encounter Summary ---
Author Organization [facility] Address [address] [place] [address] Care Team Providers Care Fly Maker Name Role Phone Unavailable Primary Care Provider Unavailabl e Encounter Details Date Type Department Care Team (Latest Contact Info) Description 03/05/2001 Outpatient Historical [facility] Pediatrics[facility] Luis Armando [address] [place] [address] Jose Roberto Piña MD NO ADDRESS ON FILE Routine child health exam (Primary Dx) Social History Tobacco Use Types Packs/Day Years Used Date Smoking Tobacco: Never Assessed Sex and Gender Information Value Date Recorded Sex Assigned at Not on file 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
== END 2025-02-08 03:54 | disposition left against medical advice (07) ==
LOC: ER 04:01
PROVIDERS: Emergency Provider Family Medicine
DX: Z53.21 Procedure and treatment not carried out due to patient leaving prior to being seen by health care provider (principal)

== ENCOUNTER 2025-02-08 04:01 | Inpatient (IN) | payer OTHER, SELFPAY ==
[2025-02-08 04:16] VITALS: BMI 22.9
--- NOTE | 2025-02-08 04:20 | ECG_ITS ---
[facility] Date: 2025-02-08 Pat Name: Reid Ríos Department: Room: Gender: Male Programming Engineer: : 1985 Requested By: Bijan Pedersen Order Number: [id number] Luz Marina MD: Collette Phan M.D. Measurements Intervals [place] Rate: 91 P: 70 WI: 138 QRS: 67 QRSD: 95 T: 46 QT: 341 QTc: 421 Interpretive Statements SINUS RHYTHM No previous ECG available for comparison Electronically Signed On 02-11-2025 10:12:59 CDT by Collette Phan M.D. [email or web address]
[2025-02-08 04:39] VITALS: BP 110/74; PULSE 85; O2SAT 90
[2025-02-08 04:58] LABS: Hematocrit 38.6 % (37-53); Hemoglobin 12.70 g/dL (11.27-16.99); Mean Corpuscular HGB Conc 32.9 g/dL (30-55); Mean Corpuscular Hemoglobin 28.5 pg (27-33); Mean Corpuscular Volume 86.5 fl (82-101); Nucleated Red Blood Cells % 0 %; Platelet Count 331 10^3/cmm (157-399); Red Blood Count 4.46 10^6/uL (3.85-5.65); White Blood Count 7.87 10^3/uL (3.29-11.43)
[2025-02-08 05:13] LABS: Alanine Aminotransferase 39 U/L (0-41); Albumin Level 4.1 g/dL (3.5-5.2); Alkaline Phosphatase 104 U/L (40-130); Anion Gap 15.5 (5-19); Aspartate Amino Transferase 62 U/L (0-40); Blood Urea Nitrogen 10 mg/dL (6-20); Calcium 9.4 mg/dL (8.5-10.5); Carbon Dioxide 26 mmol/L (22-29); Chloride 101 mmol/L (98-107); Creatinine Clr Calc Pharmacy 147.3940; Globulin 2.9 g/dL (1.3-4.6); Glucose 74 mg/dL (65-115); Osmolality Calculated 286 mOsm/kg (285-295); Potassium 3.5 mmol/L (3.5-5.1); Salicylate 0.5 mg/dL (3-10); Sodium 139 mmol/L (136-145); Total Protein 7.0 g/dL (6.6-8.7)
[2025-02-08 05:14] LABS: Acetaminophen < 5.0 ug/mL (10-30)
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
[2025-02-08 05:44] LABS: Alcohol Level < 10 mg/dL (0-10)
--- NOTE | 2025-02-08 06:22 | PC.NURSE ---
Report called to Georget[facility] in [facility] by Zain NIELSEN.
--- NOTE | 2025-02-08 07:08 | PC.NURSE ---
nurse assumes care for this patient. Patient is resting in bed on left side. Patient is asleep but east to arouse to sound. Patent states he is unable to urinate at this time. Nurse updated patient on transfer plan.
[2025-02-08 07:43] VITALS: BP 162/74; PULSE 88; RESP 16; TEMP 36.6; O2SAT 99
[2025-02-08 07:52] VITALS: RESP 16
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
[2025-02-08] MEDS: haloperidol inj 5 mg/mL INJ 1 mL IM (16:03)
[2025-02-08] MEDS: diphenhydrAMINE 50 mg/mL SDV 1mL IM (16:04)
[2025-02-08] MEDS: LORazepam 1 MG/0.5 ML injection 2 MG IM (16:11)
--- NOTE | 2025-02-08 16:12 | PC.NURSE ---
Pt was in front of nurses station speaking with Dr. Lane. He became increasingly agitated, he believes that everyone in the unit is going to stab him. He also believes that everyone hates him. He began pacing the ansari and arguing with staff and other patients. Dr. Lane advised that we take him down to his room and give him injections of Haldol, Ativan, and Benadryl. Pt willing walked with staff to his room and allowed us to give injections without incident after asking for a moment right before. As the medications were being injected he began talking about how he was being lethally injected. He stayed in his room and did his H&P with Dr. Lane.
[2025-02-08 20:19] VITALS: RESP 18
--- NOTE | 2025-02-08 20:19 | PC.NURSE ---
patient refused nurse notified.
[2025-02-09 06:00] VITALS: RESP 18
--- NOTE | 2025-02-09 06:14 | PC.NURSE ---
Patient refused nurse notified.
--- NOTE | 2025-02-09 09:10 | W.PM.NPUPNS ---
Subjective NPU Subjective: Patient presented today reporting that he is doing okay. We discussed the risks, benefits and alternatives of starting Abilify 5 mg p.o. daily and he understood and agreed to proceed as is documented in this note. We continue to discussed the challenges that come from the use of substances that have side effects of psychosis like amphetamines/methamphetamines and cannabis but he is not convinced that those substances are the problem or that some of the things that he is thinking are not real. Mental Status Exam MSE Comments: This is a well-nourished well-developed white male in hospital scrubs with limited grooming but intense eye contact. Significant tattooing on exposed skin including neck and apparent full sleeve at least on his left arm. No abnormal movements except for significant psychomotor agitation. Somewhat cooperative with exam in mild to extreme distress. Speech was mostly normal rate and volume. Mood described as paranoid, affect congruent. Thought process linear. Thought content: Patient denied suicidal or homicidal ideation, there were no delusions reported but clear paranoid, persecutory delusions noted, he denied auditory or visual hallucinations but at times did appear to be attending to internal stimuli. Attention and concentration were limited and memory appeared mostly unreliable but none were formally tested. He is alert and oriented times person and place. Insight, judgment and impulse control are all impaired. Vitals/I&O/Wt Last Vital Signs Temp 97.9 F 02/08/25 07:43 Pulse 88 02/08/25 07:43 Resp 18 02/09/25 06:00 BP 162/74 02/08/25 07:43 Pulse Ox 99 02/08/25 07:43 O2 Del Method Room Air 02/08/25 07:47 Weight last 48 hrs Weight 72.575 kg Data NPU 02/08/25 04:52 02/08/25 04:52 A&P Assessment and plan 1. Suicidal ideation: 2. Depression: 3. PTSD (post-traumatic stress disorder): 4. Alcohol abuse: 5. Cannabis abuse: 6. Methamphetamine abuse: 7. Paranoia: Plan: This is a 39-year-old white male with a long history of addiction, PTSD, trauma and mental health challenges who presents to the hospital with significant paranoia and psychosis and no current UDS but UDS from a week ago that was positive for cannabis and amphetamines here with fear of persecution requiring as needed medication interventions to function on the unit. 1. Start Abilify 5 mg p.o. daily and increase to 10 mg tomorrow if no issues. 2. Continue one-to-one while he is having such difficulty with his feelings of persecution. 3. Encourage individual, group and milieu therapy. 4. Encourage sober living treatment after discharge at the highest level care to which he is willing to commit. 5. Evaluate against the backdrop of a 96-hour hold. 6. Obtain collateral information. PDMP PDMP Reviewed: Not Reviewed Involuntary Hold Information Hold Status: Legal Status: 96 Hour Hold Date/Time Hold Expires: 02/14/25@0001 96 Hour Hold: 96 Hour Involuntary Admission: Yes Attestations NPU Medical Necessity Statement*: Inpatient hospitalization is medically necessary and the clinically appropriate intervention at this time. We will monitor/initiate medications and make changes as indicated. Likely length of stay 7 to 10 days. Coding Level of Care Code Acute Code for [facility] Fwd Diagnoses Suicidal ideation R45.851 Depression F32.A PTSD (post-traumatic stress disorder) F43.10 Alcohol abuse F10.10 Cannabis abuse F12.10 Methamphetamine abuse F15.10 Paranoia F22
[2025-02-09 14:00] VITALS: BP 97/63; PULSE 86; RESP 17; TEMP 36.4; O2SAT 99
--- NOTE | 2025-02-09 14:00 | PC.NURSE ---
96 hr [facility] reviewed @1330 with assistance of [facility] information security officer Viral Puckett and Sheila. All education reviewed with pt at this time. Pt verbalized understanding to hold parameters and had no questions for this HS at time rights being served. Pt copy was left with pt @bedside. Pt declined any beverage or snack when asked. No further needs at this time
[2025-02-09 20:59] VITALS: RESP 17
--- NOTE | 2025-02-09 20:59 | PC.NURSE ---
pt refused vital signs at this time.
--- NOTE | 2025-02-10 11:58 | PC.NURSE ---
pt was heard yelling out. when asked what was wrong, pt replied nothing. Staff replied thats the second time you have yelled out. Are you having nightmares? pt replied maybe.
[2025-02-10 14:00] VITALS: BP 117/75; PULSE 82; RESP 17; TEMP 36.4; O2SAT 100
--- NOTE | 2025-02-10 14:09 | W.PM.NPUPNS ---
Subjective NPU Subjective: Patient presented today reporting that things seem to be going better he is not sure if is just from time or absence of methamphetamine or the medication. He discussed being appreciative of how he has been helped and feels bad that he has not appreciated the impact this has on his significant other in his life. He reports that she thinks he is doing better and reports a willingness to pick him up when he is through here. We discussed getting some collateral information and working with the treatment team on discharge planning. He denied any side effects of the medication. Mental Status Exam MSE Comments: This is a well-nourished well-developed white male in hospital scrubs with limited grooming but intense eye contact. Significant tattooing on exposed skin including neck and apparent full sleeve at least on his left arm. No abnormal movements except for mild psychomotor retardation. More cooperative with exam in mild distress. Speech was mostly normal rate and volume. Mood described as a little better, affect congruent. Thought process linear. Thought content: Patient denied suicidal or homicidal ideation, there were no delusions reported and resolving, persecutory delusions noted, he denied auditory or visual hallucinations. Attention and concentration were limited and memory appeared mostly unreliable but none were formally tested. He is alert and oriented times 3. Insight, judgment and impulse control are all limited but improving. Vitals/I&O/Wt Last Vital Signs Temp 97.5 F L 02/09/25 14:00 Pulse 86 02/09/25 14:00 Resp 17 02/09/25 20:59 BP 97/63 02/09/25 14:00 Pulse Ox 99 02/09/25 14:00 O2 Del Method Room Air 02/09/25 14:00 Data NPU 02/08/25 04:52 02/08/25 04:52 A&P Assessment and plan 1. Suicidal ideation: 2. Depression: 3. PTSD (post-traumatic stress disorder): 4. Alcohol abuse: 5. Cannabis abuse: 6. Methamphetamine abuse: 7. Paranoia: Plan: This is a 39-year-old white male with a long history of addiction, PTSD, trauma and mental health challenges who presents to the hospital with significant paranoia and psychosis and no current UDS but UDS from a week ago that was positive for cannabis and amphetamines here with fear of persecution requiring as needed medication interventions to function on the unit. 1. Start Abilify 5 mg p.o. daily and increase to 10 mg likely prior to discharge. 2. Changed to every 15 minute checks for safety. 3. Encourage individual, group and milieu therapy. 4. Encourage sober living treatment after discharge at the highest level care to which he is willing to commit. 5. Evaluate against the backdrop of a 96-hour hold. 6. Obtain collateral information. PDMP PDMP Reviewed: Not Reviewed Involuntary Hold Information Hold Status: Legal Status: 96 Hour Hold Date/Time Hold Expires: 02/14/25@0001 96 Hour Hold: 96 Hour Involuntary Admission: Yes Attestations NPU Medical Necessity Statement*: Inpatient hospitalization is medically necessary and the clinically appropriate intervention at this time. We will monitor/initiate medications and make changes as indicated. Likely length of stay 3-5 days. Coding Level of Care Code Acute Code for [facility] Fwd Diagnoses Suicidal ideation R45.851 Depression F32.A PTSD (post-traumatic stress disorder) F43.10 Alcohol abuse F10.10 Cannabis abuse F12.10 Methamphetamine abuse F15.10 Paranoia F22
[2025-02-10 19:49] VITALS: BP 102/71; PULSE 91; RESP 18; TEMP 36.6; O2SAT 99
[2025-02-11 06:00] VITALS: BP 100/64; PULSE 64; RESP 18; TEMP 36.4; O2SAT 96
[2025-02-11 09:21] LABS: PCP Screen Urine Negative (Negative)
[2025-02-11 09:51] LABS: Glucose Urine UA Negative (Normal); Nitrate Urine Negative (Negative); Specific Gravity, Urine 1.012 (1.005-1.030)
[2025-02-11 09:56] LABS: Add Urine Microscopic? YES
--- NOTE | 2025-02-11 12:52 | PC.NURSE ---
Dr. Lane gave verbal order to increase Abilify to 10mg PO QD.
[2025-02-11 14:00] VITALS: BP 122/90; PULSE 98; RESP 18; TEMP 36.4; O2SAT 98
--- NOTE | 2025-02-11 17:52 | P.NPUPN_ITS ---
Subjective NPU 2 Subjective: Patient presents today reporting that he was hopeful for discharge. He initially tried to assert that this documentation writer stated that he would be discharging today and we discussed that conversation and identified that I suggested that he had the possibility. He continues to show improvement per staff reports and direct observation but today was sort of a setback in the morning where his more kind and empathetic approach was replaced with irritability. So we discussed the risks, benefits and alternatives of increasing his Abilify and he understood and agreed to proceed as documented in this note. We discussed the likelihood of discharge tomorrow if we are able to talk to his significant other and she is feeling better about the prospect. He denied any side effects to the medication. Mental Status Exam 2 MSE Comments: This is a well-nourished well-developed white male in hospital scrubs with limited grooming but intense eye contact. Significant tattooing on exposed skin including neck and apparent full sleeve at least on his left arm. No abnormal movements except for mild psychomotor retardation. More cooperative with exam in mild distress. Speech was mostly normal rate and volume. Mood described as a little better, affect congruent. Thought process linear. Thought content: Patient denied suicidal or homicidal ideation, there were no delusions reported and resolving, persecutory delusions noted, he denied auditory or visual hallucinations. Attention and concentration were limited and memory appeared mostly unreliable but none were formally tested. He is alert and oriented times 3. Insight, judgment and impulse control are all limited but improving. Vitals/I&O/Wt Last Vital Signs Temp 98.1 F 02/11/25 19:27 Pulse 96 02/11/25 19:27 Resp 18 02/11/25 19:27 BP 129/84 02/11/25 19:27 Pulse Ox 98 02/11/25 19:27 O2 Del Method Room Air 02/11/25 19:27 Data NPU 02/08/25 04:52 02/08/25 04:52 A&P Assessment and plan 1. Suicidal ideation: 2. Depression: 3. PTSD (post-traumatic stress disorder): 4. Alcohol abuse: 5. Cannabis abuse: 6. Methamphetamine abuse: 7. Paranoia: Plan: This is a 39-year-old white male with a long history of addiction, PTSD, trauma and mental health challenges who presents to the hospital with significant paranoia and psychosis and no current UDS but UDS from a week ago that was positive for cannabis and amphetamines here with fear of persecution requiring as needed medication interventions to function on the unit. 1. Start Abilify 5 mg p.o. daily and increase to 10 mg likely prior to discharge. Increased Abilify to 10 mg p.o. daily. 2. Changed to every 15 minute checks for safety. 3. Encourage individual, group and milieu therapy. 4. Encourage sober living treatment after discharge at the highest level care to which he is willing to commit. 5. Evaluate against the backdrop of a 96-hour hold. 6. Obtain collateral information. PDMP PDMP Reviewed: Not Reviewed Involuntary Hold Information 2 Hold Status: Legal Status: 96 Hour Hold Date/Time Hold Expires: @0001 96 Hour Hold: 96 Hour Involuntary Admission: Yes Attestations NPU 2 Medical Necessity Statement*: Inpatient hospitalization is medically necessary and the clinically appropriate intervention at this time. We will monitor/initiate medications and make changes as indicated. Likely length of stay 1-3 days. Coding Level of Care Code Acute Code for [facility] Fwd Diagnoses Suicidal ideation R45.851 Depression F32.A PTSD (post-traumatic stress disorder) F43.10 Alcohol abuse F10.10 Cannabis abuse F12.10 Methamphetamine abuse F15.10 Paranoia F22
[2025-02-11 19:27] VITALS: BP 129/84; PULSE 96; RESP 18; TEMP 36.7; O2SAT 98
[2025-02-12 06:00] VITALS: BP 123/83; PULSE 93; RESP 18; O2SAT 96
--- NOTE | 2025-02-12 09:49 | PC.NURSE ---
Dr. Lane wanted me to call and speak with pt life partner and see what her take was on the pt current condition and if she feels he is closer to baseline. Jeny states that when she speaks with him on the phone, the conversation starts out good and then he get very angry with her. She states that they have been together for 20yrs and she is currently , not planned and that has put a lot of stress on their relationship. She states that he has been happy about the , but its been a lot of added stress. She states that he gets really paranoid that she is cheating on him and she states that she is not. She states that they just argue a lot anymore, there is some sort of disconnect. She states that she is willing to go to counseling and get help for them. She states that he was also recently admitted to [facility] and was diagnosed with bipolar and sent home on 4 medications. She stats that she only know one of them and that was lithium. They were not filled at a pharmacy, he was d/c with them. She states that she is willing to come in and sit to talk with him and Dr, but she fears he isn't ready yet with how angry he still gets with her.
[2025-02-12] MEDS: ARIPiprazole Maintena 400 MG IM (13:48)
[2025-02-12 13:52] VITALS: BP 115/73; PULSE 128; RESP 18; TEMP 36.7; O2SAT 96
[2025-02-12 14:00] VITALS: BP 115/73; PULSE 128; RESP 18; TEMP 36.6; O2SAT 96
== END 2025-02-12 14:09 | disposition home or self-care (01) | DRG 881 ==
LOC: ER 05:35 → NP 06:16
PROVIDERS: Admitting Provider Psychiatry & Neurology Psychiatry; Emergency Provider Emergency Medicine; Visit Provider Psychiatry & Neurology Psychiatry
DX: F32.A Depression, unspecified (principal); R45.851 Suicidal ideations; L81.8 Other specified disorders of pigmentation; F43.10 Post-traumatic stress disorder, unspecified; F10.10 Alcohol abuse, uncomplicated; F12.10 Cannabis abuse, uncomplicated; F15.10 Other stimulant abuse, uncomplicated; F22 Delusional disorders
CPT/HCPCS: 36415; 73110; 80053; 80306; 80307; 81001; 85025; 93005; 96372; 97150; 97165; 99285; J1200; J1630; J2060; J9999